=== PATIENT | male | born 1980 | race Hispanic/Latino ===

== ENCOUNTER 2019-03-04 12:23 | Emergency (ER) | payer BC, OTHER | END 2019-03-04 14:23 | disposition home or self-care (01) | LOC: EDH 12:23 | DX: K12.1 Other forms of stomatitis (principal); R19.7 Diarrhea, unspecified; I10 Essential (primary) hypertension; E78.00 Pure hypercholesterolemia, unspecified; E03.9 Hypothyroidism, unspecified; E11.9 Type 2 diabetes mellitus without complications | CPT/HCPCS: 99281 ==